=== PATIENT | female | born 1970 | race Caucasian/White ===

== ENCOUNTER 2019-05-27 05:05 | Emergency (ER) | payer OTHER ==
[~2019-05-27] VITALS: Ht 177.8 cm; Wt 85.0 kg
[2019-05-27] MEDS ORDERED: KETOROLAC 30 MG/1 ML ONE (05:47)
[2019-05-27] MEDS ORDERED: ASPIRIN 81 MG TABLET CHEW ONE (05:47)
--- NOTE | 2019-05-27 05:51 | NUR ---
Pt reports taking asprin before arrival, so denied need for medication. Pt also refused Toradol, but was informed the order is there if at any point she does need it.
[2019-05-27] MEDS ORDERED: ASPIRIN 81 MG TABLET CHEW PO ONE (06:00)
[2019-05-27] MEDS ORDERED: KETOROLAC 30 MG/1 ML IM ONE (06:00)
[2019-05-27 06:03] LABS: BASOPHILS # (AUTO) 0.02 x10^3/uL (0-0.1); BASOPHILS % (AUTO) 0 % (0-1); EOSINOPHILS # (AUTO) 0.08 x10^3/uL (0-0.4); EOSINOPHILS % (AUTO) 1 % (1-7); LYMPHOCYTES # (AUTO) 1.41 x10^3/uL (1-3.4); LYMPHOCYTES % (AUTO) 20 % (22-44); MD NO; MEAN CORPUSCULAR HEMOGLOBIN 32.9 pg (27.0-34.8); MEAN CORPUSCULAR HGB CONC 33.9 g/dL (32.4-35.8); MEAN CORPUSCULAR VOLUME 97.2 fL (80-100); MEAN PLATELET VOLUME 9.1 fL (7.4-10.4); MONOCYTES # (AUTO) 0.48 x10^3/uL (0.2-0.8); MONOCYTES % (AUTO) 7 % (2-9); NEUTROPHILS # (AUTO) 5.15 x10^3/uL (1.8-6.8); NEUTROPHILS % (AUTO) 72 % (42-75); PLATELET COUNT 235 x10^3/uL (130-400); RED BLOOD COUNT 4.32 x10^6/uL (3.82-5.3); RED CELL DISTRIBUTION WIDTH 13.1 % (9.6-15.2)
[2019-05-27 06:09] LABS: ALBUMIN 3.7 g/dL (3.4-5.0); ANION GAP 6 mmol/L (5-15); CALCIUM 8.7 mg/dL (8.5-10.1); CHLORIDE 110 mmol/L (98-107)
[2019-05-27 06:16] LABS: CREATININE 0.75 mg/dL (0.55-1.02); TROPONIN I < 0.015 ng/mL (0.000-0.045)
[2019-05-27] MEDS ORDERED: SODIUM CHLORIDE FLUSH 10ML SYR IVF ONE (07:00)
--- NOTE | 2019-05-27 07:15 | NUR ---
PT TO IMAGING AT THIS TIME
[2019-05-27] MEDS ORDERED: OMNIPAQUE 350 MG/ML, 100ML BOTTLE ONE (07:36)
[2019-05-27 07:47] VITALS: BP 116/61
--- NOTE | 2019-05-27 07:47 | NUR ---
PT BACK FROM CT, VSS. PT AMBULATED TO BR WITH STEADY GAIT. NO C/O DIZZINESS, CP AT THIS TIME
== END 2019-05-27 08:47 | disposition home or self-care (01) ==
LOC: ED 06:04
DX: R07.89 Other chest pain (principal); J90 Pleural effusion, not elsewhere classified
CPT/HCPCS: 36415; 71046; 71275; 80048; 82040; 84484; 85025; 85379; 93005; 99285; Q9967